=== PATIENT | male | born 1995 | race Two or more races ===

== ENCOUNTER 2020-12-27 05:27 | Emergency (ER) | payer OTHER ==
[~2020-12-27] VITALS: Ht 172.7 cm; Wt 68.0 kg
[2020-12-27] MEDS ORDERED: AMOX-CLAV 875-1 EACH PO (06:10)
[2020-12-27] MEDS ORDERED: INTESTINEX680 M1 PO (06:10)
[2020-12-27] MEDS ORDERED: NAPROXEN375 MG PO (06:10)
== END 2020-12-27 06:21 | disposition home or self-care (01) ==
LOC: ER 05:27
DX: L02.519 Cutaneous abscess of unspecified hand (principal); L03.019 Cellulitis of unspecified finger